=== PATIENT | male | born 1965 | race Caucasian/White ===

== ENCOUNTER → 2017-09-18 | Emergency (ER) | payer MEDICAID ==
[~2017-09-18] VITALS: Ht 180.3 cm; Wt 97.0 kg
[~2017-09-18] MED LIST: aspirin 81mg tab.chew PO ONE; nitroGLYCERIN 0.4mg SUBLingual tab SL PRN
[2017-09-18 09:00] LABS: BASOPHILS % (AUTO) 0.5 % (0-1); EOSINOPHILS # (AUTO) 0.1 X10'3 (0-0.9); EOSINOPHILS % (AUTO) 2.6 % (0-6); HEMATOCRIT 48.6 % (42.0-52.0); LYMPHOCYTES # (AUTO) 1.1 X10'3 (1.1-4.8); MEAN CORPUSCULAR HEMOGLOBIN 31.9 PG (27.0-31.0); MEAN CORPUSCULAR VOLUME 90.9 FL (78-98); MEAN PLATELET VOLUME 7.3 FL (7.4-10.4); MONOCYTES # (AUTO) 0.4 X10'3 (0-0.9); MONOCYTES % (AUTO) 8.2 % (2-12); NEUTROPHILS # (AUTO) 3.6 X10'3 (1.8-7.7); NEUTROPHILS % (AUTO) 67.7 % (42-75); PLATELET COUNT 189 X10'3 (140-440); RED BLOOD COUNT 5.35 X10'6 (4.70-6.10); RED CELL DISTRIBUTION WIDTH 13.3 % (11.5-14.5); WHITE BLOOD COUNT 5.4 X10'3 (4.5-11.0)
[2017-09-18 09:11] LABS: PARTIAL THROMBOPLASTIN TIME 29 SECONDS (22-32); PROTHROMBIN TIME 10.7 SECONDS (9.0-12.0)
[2017-09-18 09:14] LABS: ALANINE AMINOTRANSFERASE 59 U/L (12-78); ALBUMIN 4.4 G/DL (3.4-5.0); ALBUMIN/GLOBULIN RATIO 1.5 (1.1-1.5); ALKALINE PHOSPHATASE 62 IU/L (46-116); ANION GAP 6 (8-16); ASPARTATE AMINO TRANSFERASE 35 U/L (10-37); BILIRUBIN,TOTAL 0.4 MG/DL (0.1-1.0); BLOOD UREA NITROGEN 25 MG/DL (7-18); BUN/CREATININE RATIO 25.8 (5.4-32.0); CALCIUM 9.1 MG/DL (8.5-10.1); CHLORIDE 106 MMOL/L (99-107); CREATININE 0.97 MG/DL (0.60-1.10); GLUCOSE 112 MG/DL (70-104); POTASSIUM 4.7 MMOL/L (3.5-5.1); SODIUM 140 MMOL/L (135-145); TOTAL CARBON DIOXIDE 28.4 MMOL/L (24-32); TOTAL PROTEIN 7.4 G/DL (6.4-8.2); eGFR 81 ML/MIN
[2017-09-18 12:54] VITALS: BP 132/86
== END | disposition home or self-care (01) ==
LOC: ER 08:31
DX: R07.89 Other chest pain (principal); M79.602 Pain in left arm
CPT/HCPCS: 36415; 71045; 80053; 84484; 85025; 85610; 85730; 93005; 99285

== ENCOUNTER 2017-10-05 19:12 | Emergency (ER) | payer MEDICAID ==
[~2017-10-05] VITALS: Ht 180.3 cm; Wt 99.0 kg
[2017-10-05] MEDS ORDERED: aspirin 81mg tab.chew PO ONE (19:35)
[2017-10-05 19:50] LABS: BASOPHILS % (AUTO) 0.4 % (0-1); EOSINOPHILS # (AUTO) 0.3 X10'3 (0-0.9); EOSINOPHILS % (AUTO) 3.4 % (0-6); HEMATOCRIT 48.8 % (42.0-52.0); LYMPHOCYTES # (AUTO) 2.2 X10'3 (1.1-4.8); LYMPHOCYTES % (AUTO) 24.1 % (21-51); MEAN CORPUSCULAR HEMOGLOBIN 31.9 PG (27.0-31.0); MEAN CORPUSCULAR HGB CONC 34.9 % (33.0-36.5); MEAN CORPUSCULAR VOLUME 91.3 FL (78-98); MEAN PLATELET VOLUME 7.5 FL (7.4-10.4); MONOCYTES # (AUTO) 0.7 X10'3 (0-0.9); MONOCYTES % (AUTO) 7.6 % (2-12); NEUTROPHILS # (AUTO) 5.9 X10'3 (1.8-7.7); NEUTROPHILS % (AUTO) 64.5 % (42-75); PLATELET COUNT 185 X10'3 (140-440); RED BLOOD COUNT 5.34 X10'6 (4.70-6.10); RED CELL DISTRIBUTION WIDTH 13.6 % (11.5-14.5); WHITE BLOOD COUNT 9.1 X10'3 (4.5-11.0)
[2017-10-05 20:02] LABS: INR 1.1 INR; PARTIAL THROMBOPLASTIN TIME 28 SECONDS (22-32); PROTHROMBIN TIME 11.1 SECONDS (9.0-12.0)
[2017-10-05 20:05] LABS: ALANINE AMINOTRANSFERASE 71 U/L (12-78); ALBUMIN 4.2 G/DL (3.4-5.0); ALBUMIN/GLOBULIN RATIO 1.2 (1.1-1.5); ALKALINE PHOSPHATASE 58 IU/L (46-116); ANION GAP 11 (8-16); ASPARTATE AMINO TRANSFERASE 44 U/L (10-37); BILIRUBIN,TOTAL 0.8 MG/DL (0.1-1.0); BLOOD UREA NITROGEN 23 MG/DL (7-18); BUN/CREATININE RATIO 19.3 (5.4-32.0); CALCIUM 9.3 MG/DL (8.5-10.1); CHLORIDE 104 MMOL/L (99-107); CREATININE 1.19 MG/DL (0.60-1.10); GLUCOSE 96 MG/DL (70-104); SODIUM 143 MMOL/L (135-145); TOTAL CARBON DIOXIDE 27.6 MMOL/L (24-32); TOTAL PROTEIN 7.6 G/DL (6.4-8.2); eGFR 64 ML/MIN
[2017-10-05] MEDS ORDERED: mag hydrox/Alum hydrox/simeth 30ml oral suspension PO ONE (21:20)
[2017-10-05] MEDS ORDERED: LORazepam 2 mg/ml vial IV ONE (21:20)
[2017-10-05] MEDS ORDERED: famotidine/PF 10 mg/ml inj IV ONE (21:20)
[2017-10-05 23:26] VITALS: BP 129/92
== END 2017-10-05 23:27 | disposition home or self-care (01) ==
LOC: ER 19:13
DX: R07.9 Chest pain, unspecified (principal); F17.200 Nicotine dependence, unspecified, uncomplicated
CPT/HCPCS: 36415; 71045; 80053; 84484; 85025; 85610; 85730; 93005; 96374; 96375; 99285; J2060; J3490

== ENCOUNTER 2017-10-29 19:13 | Emergency (ER) | payer MEDICAID ==
[~2017-10-29] VITALS: Ht 180.3 cm; Wt 97.5 kg
[2017-10-29] MEDS ORDERED: LORazepam 1 MG tablet PO ONE (19:45)
[2017-10-29] MEDS ORDERED: mag hydrox/Alum hydrox/simeth 30ml oral suspension PO ONE (19:45)
[2017-10-29 19:52] LABS: BASOPHILS % (AUTO) 0.3 % (0-1); EOSINOPHILS # (AUTO) 0.5 X10'3 (0-0.9); EOSINOPHILS % (AUTO) 6.4 % (0-6); HEMOGLOBIN 15.9 g/dl (14.0-17.9); LYMPHOCYTES # (AUTO) 1.9 X10'3 (1.1-4.8); MEAN CORPUSCULAR HEMOGLOBIN 32.4 PG (27.0-31.0); MEAN CORPUSCULAR HGB CONC 35.4 % (33.0-36.5); MEAN CORPUSCULAR VOLUME 91.6 FL (78-98); MEAN PLATELET VOLUME 7.9 FL (7.4-10.4); MONOCYTES # (AUTO) 0.6 X10'3 (0-0.9); MONOCYTES % (AUTO) 8.7 % (2-12); NEUTROPHILS # (AUTO) 4.3 X10'3 (1.8-7.7); NEUTROPHILS % (AUTO) 58.6 % (42-75); PLATELET COUNT 185 X10'3 (140-440); RED BLOOD COUNT 4.92 X10'6 (4.70-6.10); RED CELL DISTRIBUTION WIDTH 13.5 % (11.5-14.5); WHITE BLOOD COUNT 7.3 X10'3 (4.5-11.0)
[2017-10-29 20:03] LABS: INR 1.1 INR; PARTIAL THROMBOPLASTIN TIME 29 SECONDS (22-32); PROTHROMBIN TIME 10.9 SECONDS (9.0-12.0)
[2017-10-29 20:13] LABS: ALANINE AMINOTRANSFERASE 62 U/L (12-78); ALBUMIN 3.8 G/DL (3.4-5.0); ALBUMIN/GLOBULIN RATIO 1.1 (1.1-1.5); ALKALINE PHOSPHATASE 70 IU/L (46-116); ANION GAP 10 (8-16); ASPARTATE AMINO TRANSFERASE 39 U/L (10-37); BILIRUBIN,TOTAL 0.4 MG/DL (0.1-1.0); BLOOD UREA NITROGEN 32 MG/DL (7-18); BUN/CREATININE RATIO 27.1 (5.4-32.0); CALCIUM 9.1 MG/DL (8.5-10.1); CHLORIDE 107 MMOL/L (99-107); CREATININE 1.18 MG/DL (0.60-1.10); GLUCOSE 115 MG/DL (70-104); POTASSIUM 4.2 MMOL/L (3.5-5.1); SODIUM 141 MMOL/L (135-145); TOTAL PROTEIN 7.2 G/DL (6.4-8.2); eGFR 65 ML/MIN
[2017-10-29] MEDS ORDERED: normal saline 1000ML IV soln IVB ONE (20:25)
[2017-10-29 21:40] VITALS: BP 128/77
== END 2017-10-29 21:42 | disposition home or self-care (01) ==
LOC: ER 19:14
DX: R07.89 Other chest pain (principal); E86.0 Dehydration; K21.9 Gastro-esophageal reflux disease without esophagitis; F17.210 Nicotine dependence, cigarettes, uncomplicated
CPT/HCPCS: 36415; 71045; 80053; 83880; 84484; 85025; 85610; 85730; 93005; 99285; J7030

== ENCOUNTER 2018-02-01 17:10 | Emergency (ER) | payer MEDICAID ==
[~2018-02-01] VITALS: Ht 180.3 cm; Wt 95.7 kg
[2018-02-01] MEDS ORDERED: aspirin 81mg tab.chew PO ONE (17:15)
[2018-02-01 17:30] LABS: BASOPHILS % (AUTO) 0.1 % (0-1); EOSINOPHILS # (AUTO) 0.1 X10'3 (0-0.9); EOSINOPHILS % (AUTO) 0.6 % (0-6); HEMATOCRIT 54.2 % (42.0-52.0); LYMPHOCYTES # (AUTO) 2.2 X10'3 (1.1-4.8); MEAN CORPUSCULAR HEMOGLOBIN 32.1 PG (27.0-31.0); MEAN CORPUSCULAR HGB CONC 34.9 % (33.0-36.5); MEAN PLATELET VOLUME 7.9 FL (7.4-10.4); MONOCYTES # (AUTO) 0.7 X10'3 (0-0.9); MONOCYTES % (AUTO) 5.6 % (2-12); NEUTROPHILS # (AUTO) 9.8 X10'3 (1.8-7.7); NEUTROPHILS % (AUTO) 76.7 % (42-75); PLATELET COUNT 186 X10'3 (140-440); RED BLOOD COUNT 5.88 X10'6 (4.70-6.10); RED CELL DISTRIBUTION WIDTH 12.8 % (11.5-14.5); WHITE BLOOD COUNT 12.7 X10'3 (4.5-11.0)
[2018-02-01] MEDS ORDERED: normal saline 1000ml 1,000 ML IV ONE ×2 (17:35→18:30)
[2018-02-01] MEDS ORDERED: LORazepam 2 mg/ml vial IV ONE ×2 (17:40→18:30)
[2018-02-01 17:42] LABS: HEMOGLOBIN 18.9 g/dl (14.0-17.9); PARTIAL THROMBOPLASTIN TIME 28 SECONDS (22-32); PROTHROMBIN TIME 10.7 SECONDS (9.0-12.0)
[2018-02-01 17:57] LABS: D-DIMER 0.33 MG/L FEU (0-0.50)
[2018-02-01 18:09] LABS: ALANINE AMINOTRANSFERASE 60 U/L (12-78); ALBUMIN 5.2 G/DL (3.4-5.0); ALBUMIN/GLOBULIN RATIO 1.4 (1.1-1.5); ALKALINE PHOSPHATASE 75 IU/L (46-116); ANION GAP 15 (8-16); ASPARTATE AMINO TRANSFERASE 41 U/L (10-37); BLOOD UREA NITROGEN 35 MG/DL (7-18); BUN/CREATININE RATIO 19.9 (5.4-32.0); CALCIUM 10.7 MG/DL (8.5-10.1); CHLORIDE 95 MMOL/L (99-107); CREATININE 1.76 MG/DL (0.60-1.10); GLUCOSE 104 MG/DL (70-104); POTASSIUM 3.6 MMOL/L (3.5-5.1); SODIUM 134 MMOL/L (135-145); TOTAL CARBON DIOXIDE 24.5 MMOL/L (24-32); eGFR 41 ML/MIN
[2018-02-01 19:20] LABS: URINE AMPHETAMINE SCREEN NEGATIVE (Neg); URINE BARBITUATE SCREEN NEGATIVE (Neg); URINE BENZODIAZEPINES SCREEN NEGATIVE (Neg); URINE CANNABINOID SCREEN NEGATIVE (Neg); URINE COCAINE SCREEN NEGATIVE (Neg); URINE METHADONE SCREEN NEGATIVE (Neg); URINE OPIATE SCREEN NEGATIVE (Neg); URINE PHENCYCLIDINE SCREEN NEGATIVE (Neg)
[2018-02-01 19:25] VITALS: BP 131/87
[2018-02-01] MEDS ORDERED: LORA1TAB PO (19:35)
== END 2018-02-01 19:46 | disposition home or self-care (01) ==
LOC: ER 17:11
DX: F41.9 Anxiety disorder, unspecified (principal); E86.0 Dehydration; D75.1 Secondary polycythemia; K21.9 Gastro-esophageal reflux disease without esophagitis; Z98.890 Other specified postprocedural states; Z79.899 Other long term (current) drug therapy
CPT/HCPCS: 36415; 71045; 80053; 80305; 84484; 85025; 85379; 85610; 85730; 93005; 96361; 96374; 96376; 99285; J2060; J7030

== ENCOUNTER 2018-04-30 15:47 | Emergency (ER) | payer MEDICAID ==
[~2018-04-30] VITALS: Ht 177.8 cm; Wt 95.5 kg
[2018-04-30 17:53] LABS: CLARITY,URINE CLEAR (Clear); COLOR,URINE YELLOW (Yellow); GLUCOSE, URINE NEGATIVE (Neg); KETONES,URINE NEGATIVE (Neg); LEUKOCYTE ESTERASE ,URINE NEGATIVE (Neg); NITRITES, URINE NEGATIVE (Neg); OCCULT BLOOD,URINE NEGATIVE (Neg); PROTEIN,URINE TRACE mg/dl (Neg); UA COLLECTION TYPE CLN CATCH MIDSTREAM
[2018-04-30 17:58] LABS: BACTERIA,URINE NONE SEEN /HPF (Neg); MUCUS STRANDS FEW /LPF (Neg); RBC,URINE NONE SEEN /HPF (0-2); SQUAMOUS EPITHELIAL CELL,UR NONE SEEN /LPF (FEW); WBC,URINE 0-4 /HPF (0-4)
[2018-04-30 18:00] LABS: URINE AMPHETAMINE SCREEN NEGATIVE (Neg); URINE BARBITUATE SCREEN NEGATIVE (Neg); URINE BENZODIAZEPINES SCREEN NEGATIVE (Neg); URINE CANNABINOID SCREEN NEGATIVE (Neg); URINE COCAINE SCREEN NEGATIVE (Neg); URINE METHADONE SCREEN NEGATIVE (Neg); URINE OPIATE SCREEN NEGATIVE (Neg); URINE PHENCYCLIDINE SCREEN NEGATIVE (Neg)
[2018-04-30 18:07] LABS: BASOPHILS % (AUTO) 0.5 % (0-1); EOSINOPHILS # (AUTO) 0.2 X10'3 (0-0.9); HEMATOCRIT 46.3 % (42.0-52.0); HEMOGLOBIN 15.9 g/dl (14.0-17.9); LYMPHOCYTES % (AUTO) 12.5 % (21-51); MEAN CORPUSCULAR HEMOGLOBIN 30.7 PG (27.0-31.0); MEAN CORPUSCULAR HGB CONC 34.3 % (33.0-36.5); MEAN CORPUSCULAR VOLUME 89.5 FL (78-98); MEAN PLATELET VOLUME 7.5 FL (7.4-10.4); MONOCYTES # (AUTO) 0.7 X10'3 (0-0.9); MONOCYTES % (AUTO) 9.4 % (2-12); NEUTROPHILS # (AUTO) 5.8 X10'3 (1.8-7.7); NEUTROPHILS % (AUTO) 75.6 % (42-75); PLATELET COUNT 217 X10'3 (140-440); RED BLOOD COUNT 5.17 X10'6 (4.70-6.10); RED CELL DISTRIBUTION WIDTH 12.7 % (11.5-14.5); WHITE BLOOD COUNT 7.6 X10'3 (4.5-11.0)
[2018-04-30 18:23] LABS: ALANINE AMINOTRANSFERASE 47 U/L (12-78); ALBUMIN 3.3 G/DL (3.4-5.0); ALBUMIN/GLOBULIN RATIO 0.8 (1.1-1.5); ALKALINE PHOSPHATASE 61 IU/L (46-116); ANION GAP 12 (8-16); ASPARTATE AMINO TRANSFERASE 43 U/L (10-37); BILIRUBIN,TOTAL 0.5 MG/DL (0.1-1.0); BLOOD UREA NITROGEN 16 MG/DL (7-18); CALCIUM 9.2 MG/DL (8.5-10.1); CHLORIDE 100 MMOL/L (99-107); CREATININE 1.14 MG/DL (0.60-1.10); GLUCOSE 108 MG/DL (70-104); POTASSIUM 3.8 MMOL/L (3.5-5.1); SODIUM 137 MMOL/L (135-145); TOTAL CARBON DIOXIDE 25.2 MMOL/L (24-32); TOTAL PROTEIN 7.6 G/DL (6.4-8.2); eGFR 67 ML/MIN
[2018-04-30 18:34] LABS: D-DIMER 1.41 MG/L FEU (0-0.50)
[2018-04-30] MEDS ORDERED: iohexol 350MG/ML 100ml bottle IV ONE (19:00)
[2018-04-30] MEDS ORDERED: DEXA4TAB67 PO (20:53)
[2018-04-30] MEDS ORDERED: ALBU18HF2 INH (20:53)
[2018-04-30] MEDS ORDERED: LEVO750T21 PO (20:53)
[2018-04-30] MEDS ORDERED: levoFLOXACIN 750MG TABLET PO STA (21:02)
[2018-04-30 21:12] VITALS: BP 133/94
== END 2018-04-30 21:13 | disposition home or self-care (01) ==
LOC: ER 15:48
DX: J18.9 Pneumonia, unspecified organism (principal); K21.9 Gastro-esophageal reflux disease without esophagitis; Z86.19 Personal history of other infectious and parasitic diseases; Z98.890 Other specified postprocedural states; Z79.899 Other long term (current) drug therapy; R16.0 Hepatomegaly, not elsewhere classified
CPT/HCPCS: 36415; 71275; 80053; 80305; 81001; 85025; 85379; 85651; 99285; J7030; Q9967

== ENCOUNTER 2018-10-26 19:43 | Emergency (ER) | payer MEDICAID ==
[~2018-10-26] VITALS: Ht 180.3 cm; Wt 94.8 kg
[~2018-10-26 19:43] MED LIST changes: +ALBU18HF2 INH; +DEXA4TAB67 PO; -aspirin 81mg tab.chew PO ONE; -nitroGLYCERIN 0.4mg SUBLingual tab SL PRN
[2018-10-26 20:19] VITALS: BP 111/87
== END 2018-10-26 21:24 | disposition home or self-care (01) ==
LOC: ER 19:43
DX: J06.9 Acute upper respiratory infection, unspecified (principal); K21.9 Gastro-esophageal reflux disease without esophagitis; F17.200 Nicotine dependence, unspecified, uncomplicated
CPT/HCPCS: 71046; 93005; 99283

== ENCOUNTER 2019-08-13 13:14 | Emergency (ER) | payer MEDICAID, OTHER ==
[~2019-08-13] VITALS: Ht 180.3 cm; Wt 95.5 kg
[2019-08-13 13:48] VITALS: BP 145/89
[2019-08-13] MEDS ORDERED: LORazepam 1 MG tablet PO ONE (15:00)
[2019-08-13] MEDS ORDERED: LORA-269 PO (15:51)
== END 2019-08-13 15:55 | disposition home or self-care (01) ==
LOC: ER 13:15
DX: R05 Cough (principal); F41.9 Anxiety disorder, unspecified; K21.9 Gastro-esophageal reflux disease without esophagitis; F17.200 Nicotine dependence, unspecified, uncomplicated; Z98.890 Other specified postprocedural states; Z86.19 Personal history of other infectious and parasitic diseases
CPT/HCPCS: 71045; 99283

== ENCOUNTER 2020-03-24 19:32 | Emergency (ER) | payer MEDICAID ==
[~2020-03-24] VITALS: Ht 180.3 cm; Wt 84.1 kg
[~2020-03-24 19:32] MED LIST changes: +LORA-269 PO
--- NOTE | 2020-03-24 20:11 | NUR ---
PT REPORTS USING A "[employer] YESTERDAY"
[2020-03-24 20:24] LABS: BASOPHILS % (AUTO) 0.7 % (0-1); EOSINOPHILS # (AUTO) 0.3 X10'3 (0-0.9); EOSINOPHILS % (AUTO) 4.3 % (0-6); HEMATOCRIT 44.6 % (42.0-52.0); HEMOGLOBIN 15.6 g/dl (14.0-17.9); LYMPHOCYTES # (AUTO) 1.7 X10'3 (1.1-4.8); LYMPHOCYTES % (AUTO) 23.4 % (21-51); MEAN CORPUSCULAR HEMOGLOBIN 31.2 PG (27.0-31.0); MEAN CORPUSCULAR HGB CONC 35.1 g/dL (33.0-36.5); MEAN PLATELET VOLUME 7.2 FL (7.4-10.4); MONOCYTES # (AUTO) 0.7 X10'3 (0-0.9); MONOCYTES % (AUTO) 9.7 % (2-12); NEUTROPHILS # (AUTO) 4.6 X10'3 (1.8-7.7); NEUTROPHILS % (AUTO) 61.9 % (42-75); PLATELET COUNT 206 X10'3 (140-440); RED BLOOD COUNT 5.01 X10'6 (4.70-6.10); RED CELL DISTRIBUTION WIDTH 13.2 % (11.5-14.5); WHITE BLOOD COUNT 7.4 X10'3 (4.5-11.0)
[2020-03-24 20:30] LABS: ANION GAP 9 (8-16); BILIRUBIN,TOTAL 0.3 MG/DL (0.1-1.0); BLOOD UREA NITROGEN 20 MG/DL (7-18); BUN/CREATININE RATIO 15.3 (5.4-32.0); CALCIUM 8.8 MG/DL (8.5-10.1); CHLORIDE 105 MMOL/L (99-107); CREATININE 1.31 MG/DL (0.60-1.10); GLUCOSE 93 MG/DL (70-104); POTASSIUM 4.1 MMOL/L (3.5-5.1); SODIUM 140 MMOL/L (135-145); TOTAL CARBON DIOXIDE 26.3 MMOL/L (24-32); eGFR 57 ML/MIN
[2020-03-24 20:31] LABS: ALANINE AMINOTRANSFERASE 22 U/L (12-78); ALBUMIN/GLOBULIN RATIO 1.2 (1.1-1.5); ALKALINE PHOSPHATASE 91 IU/L (46-116); ASPARTATE AMINO TRANSFERASE 19 U/L (10-37); TOTAL PROTEIN 7.4 G/DL (6.4-8.2)
[2020-03-24 21:24] VITALS: BP 141/98
== END 2020-03-24 21:32 | disposition home or self-care (01) ==
LOC: ER 19:33
DX: R07.89 Other chest pain (principal); F15.10 Other stimulant abuse, uncomplicated; K21.9 Gastro-esophageal reflux disease without esophagitis; F41.9 Anxiety disorder, unspecified; Z86.19 Personal history of other infectious and parasitic diseases; Z98.890 Other specified postprocedural states; Z79.899 Other long term (current) drug therapy
CPT/HCPCS: 36415; 71045; 80053; 83880; 84484; 85025; 93005; 99285

== ENCOUNTER 2021-03-28 21:00 | Emergency (ER) | payer MEDICAID ==
[~2021-03-28] VITALS: Ht 180.3 cm; Wt 95.5 kg
[2021-03-28 22:03] LABS: TROPONIN I 0.48 NG/ML (0.0-0.05)
[2021-03-28] MEDS ORDERED: normal saline 1000ml 1,000 ML IV ONE (22:45)
[2021-03-28] MEDS ORDERED: aspirin 81mg tab.chew PO ONE (22:45)
[2021-03-28] MEDS ORDERED: normal saline 1000ML IV soln IVB ONE (22:45)
[2021-03-28] MEDS ORDERED: nitroGLYCERIN 0.4mg/hour patch TD ONE (22:45)
[2021-03-28 23:00] LABS: HEMATOCRIT 48.8 % (42.0-52.0); PLATELET COUNT 228 X10'3 (140-440); RED CELL DISTRIBUTION WIDTH 13.9 % (11.5-14.5); WHITE BLOOD COUNT 8.9 X10'3 (4.5-11.0)
[2021-03-28 23:02] LABS: BASOPHILS # (AUTO) 0.1 X10'3 (0-0.2); BASOPHILS % (AUTO) 0.7 % (0-1); EOSINOPHILS # (AUTO) 0.1 X10'3 (0-0.9); EOSINOPHILS % (AUTO) 1.4 % (0-6); HEMOGLOBIN 16.8 g/dl (14.0-17.9); LYMPHOCYTES # (AUTO) 1.9 X10'3 (1.1-4.8); MEAN CORPUSCULAR HEMOGLOBIN 30.9 PG (27.0-31.0); MEAN CORPUSCULAR HGB CONC 34.3 g/dL (33.0-36.5); MEAN PLATELET VOLUME 8.7 FL (7.4-10.4); MONOCYTES # (AUTO) 0.8 X10'3 (0-0.9); NEUTROPHILS % (AUTO) 67.9 % (42-75); RED BLOOD COUNT 5.43 X10'6 (4.70-6.10)
[2021-03-28 23:09] LABS: ALANINE AMINOTRANSFERASE 24 U/L (12-78); ALBUMIN 3.8 G/DL (3.4-5.0); ALBUMIN/GLOBULIN RATIO 1.2 (1.1-1.5); ALKALINE PHOSPHATASE 96 IU/L (46-116); ANION GAP 12 (8-16); ASPARTATE AMINO TRANSFERASE 19 U/L (10-37); BILIRUBIN,TOTAL 0.4 MG/DL (0.1-1.0); BLOOD UREA NITROGEN 20 MG/DL (7-18); BUN/CREATININE RATIO 14.4 (5.4-32.0); CALCIUM 8.6 MG/DL (8.5-10.1); CHLORIDE 108 MMOL/L (99-107); CREATININE 1.39 MG/DL (0.60-1.10); GLUCOSE 114 MG/DL (70-104); POTASSIUM 4.1 MMOL/L (3.5-5.1); SODIUM 140 MMOL/L (135-145); TOTAL CARBON DIOXIDE 19.9 MMOL/L (24-32); eGFR 53 ML/MIN
[2021-03-28 23:13] LABS: CREATINE KINASE 61 U/L (39-308); MAGNESIUM 1.8 MG/DL (1.5-2.4)
[2021-03-29] VITALS (7 sets, daily range): BP systolic 139–148; BP diastolic 93–103
[2021-03-29] MEDS ORDERED: acetaminophen 325mg tablet PO PRN ×2 (00:25)
[2021-03-29] MEDS ORDERED: enoxaparin 100mg/ml syringe SUBCUT ONE (00:25)
[2021-03-29] MEDS ORDERED: normal saline 1000ml 1,000 ML IV SCH (00:25)
[2021-03-29] MEDS ORDERED: metoprolol tartrate 1mg/ml inj IV PRN (00:25)
[2021-03-29] MEDS ORDERED: regadenoson 0.4mg/5ml syringe IV PRN (00:25)
[2021-03-29] MEDS ORDERED: magnesium Cl slow-release 64mg tablet PO PRN (00:25)
[2021-03-29] MEDS ORDERED: morphine 2 MG/ML inj. syringe IV PRN (00:25)
[2021-03-29] MEDS ORDERED: potassium Cl 40MEQ/1/2NS 520ml 520 ML IV PRN ×2 (00:25)
[2021-03-29] MEDS ORDERED: potassium Cl 20 mEq SR tablet PO PRN ×2 (00:25)
[2021-03-29] MEDS ORDERED: ondansetron/PF 4mg/2ml inj IV PRN (00:25)
[2021-03-29] MEDS ORDERED: magnesium 2GM in 50ml NS 50 ML IV PRN (00:25)
[2021-03-29] MEDS ORDERED: HYDROcodone/acetaminophen 5mg/325mg tablet PO PRN (00:25)
[2021-03-29] MEDS ORDERED: HYDROcodone/acetaminophen 10/325mg tab PO PRN (00:25)
[2021-03-29] MEDS ORDERED: aminophylline 250mg/10ml inj. IV PRN (00:25)
[2021-03-29] MEDS ORDERED: magnesium 4gm in 100ml NS 100 ML IV PRN (00:25)
[2021-03-29] MEDS ORDERED: nitroGLYCERIN 0.4mg SUBLingual tab SL PRN (00:25)
[2021-03-29 00:26] LABS: PARTIAL THROMBOPLASTIN TIME 29 SECONDS (22-32)
[2021-03-29] MEDS ORDERED: NO HOME MEDS (01:04)
[2021-03-29] MEDS ORDERED: albuterol 2.5 MG/3 ML nebule NEB PRN (01:10)
[2021-03-29] MEDS: morphine 2 MG/ML inj. syringe IV PRN ×2 (01:19→09:26)
[2021-03-29 01:27] LABS: CLARITY,URINE CLEAR (Clear); COLOR,URINE YELLOW (Yellow); GLUCOSE, URINE NEGATIVE (Neg); KETONES,URINE NEGATIVE (Neg); LEUKOCYTE ESTERASE ,URINE NEGATIVE (Neg); NITRITES, URINE NEGATIVE (Neg); OCCULT BLOOD,URINE NEGATIVE (Neg); PH,URINE 5.5 (4.8-8.0); PROTEIN,URINE 30 mg/dl (Neg)
[2021-03-29 01:34] LABS: UA COLLECTION TYPE URINAL
[2021-03-29 01:35] LABS: URINE AMPHETAMINE SCREEN POSITIVE (Neg); URINE BARBITUATE SCREEN NEGATIVE (Neg); URINE BENZODIAZEPINES SCREEN NEGATIVE (Neg); URINE CANNABINOID SCREEN NEGATIVE (Neg); URINE COCAINE SCREEN NEGATIVE (Neg); URINE METHADONE SCREEN NEGATIVE (Neg); URINE OPIATE SCREEN NEGATIVE (Neg); URINE PHENCYCLIDINE SCREEN NEGATIVE (Neg)
[2021-03-29 01:37] LABS: BACTERIA,URINE NONE SEEN /HPF (Neg); RBC,URINE NONE SEEN /HPF (0-2); SQUAMOUS EPITHELIAL CELL,UR NONE SEEN /LPF (FEW); WBC,URINE 0-4 /HPF (0-4)
[2021-03-29] MEDS ORDERED: PERFLUTREN PROTEIN-A MICROSPHR (Optison) 0.22 MG/ML 3ML VIAL IV ONE (08:00)
[2021-03-29] MEDS ORDERED: K and/or MAG REPLACEMENT MC SCH (08:00)
[2021-03-29] MEDS ORDERED: heparin, porcine 5000 units/ml vial SQ SCH (08:00)
--- NOTE | 2021-03-29 08:48 | NUR ---
Pt to [facility]
--- NOTE | 2021-03-29 10:30 | NUR ---
to nuc med
--- NOTE | 2021-03-29 16:15 | NUR ---
PT REQUESTS TO LEAVE AMA, DR MALDONADO NOTIFIED. Pt encouraged to stay but declined. Advised to return for worsening symptoms.
[2021-03-29] MEDS ORDERED: temazepam 15mg capsule PO PRN (21:00)
== END 2021-03-29 16:07 | disposition left against medical advice (07) ==
LOC: ER 21:01 → ED HOLD 03-29 00:26 → UNDOADMIN 03-29 00:26 → ER 03-29 16:07 → UNDODISIN 03-29 16:10
DX: I21.4 Non-ST elevation (NSTEMI) myocardial infarction (principal); I50.23 Acute on chronic systolic (congestive) heart failure; I42.7 Cardiomyopathy due to drug and external agent; Z20.822 Contact with and (suspected) exposure to COVID-19; F17.210 Nicotine dependence, cigarettes, uncomplicated; Z53.29 Procedure and treatment not carried out because of patient's decision for other reasons; F19.10 Other psychoactive substance abuse, uncomplicated; T43.625A Adverse effect of amphetamines, initial encounter; R03.0 Elevated blood-pressure reading, without diagnosis of hypertension; J44.9 Chronic obstructive pulmonary disease, unspecified; N18.30 Chronic kidney disease, stage 3 unspecified; B19.20 Unspecified viral hepatitis C without hepatic coma; F41.9 Anxiety disorder, unspecified; K21.9 Gastro-esophageal reflux disease without esophagitis; R79.89 Other specified abnormal findings of blood chemistry; Y92.89 Other specified places as the place of occurrence of the external cause; Z79.899 Other long term (current) drug therapy
CPT/HCPCS: 36415; 71045; 78452; 80053; 80305; 81001; 82550; 83735; 83880; 84484; 85025; 85610; 85730; 87081; 87635; 93005; 93017; 93306; 96361; 96372; 96374; 96375; 96376; 99285; A9500; C9803; J2270; J2405; J2785; J7030; 94760; G0378; J1650

== ENCOUNTER 2021-03-31 19:25 | Emergency (ER) | payer MEDICAID ==
[~2021-03-31] VITALS: Ht 175.3 cm; Wt 86.0 kg
[~2021-03-31 19:25] MED LIST changes: -ALBU18HF2 INH; -DEXA4TAB67 PO; -LORA-269 PO; +NO HOME MEDS
[2021-03-31] MEDS ORDERED: aspirin 81mg tab.chew PO ONE (19:55)
[2021-03-31 20:27] LABS: BASOPHILS # (AUTO) 0.1 X10'3 (0-0.2); BASOPHILS % (AUTO) 0.6 % (0-1); EOSINOPHILS # (AUTO) 0.1 X10'3 (0-0.9); EOSINOPHILS % (AUTO) 1.4 % (0-6); HEMATOCRIT 46.2 % (42.0-52.0); HEMOGLOBIN 16.1 g/dl (14.0-17.9); LYMPHOCYTES # (AUTO) 1.8 X10'3 (1.1-4.8); LYMPHOCYTES % (AUTO) 19.4 % (21-51); MEAN CORPUSCULAR HEMOGLOBIN 30.9 PG (27.0-31.0); MEAN CORPUSCULAR HGB CONC 34.9 g/dL (33.0-36.5); MEAN CORPUSCULAR VOLUME 88.6 FL (78-98); MEAN PLATELET VOLUME 8.3 FL (7.4-10.4); MONOCYTES # (AUTO) 0.8 X10'3 (0-0.9); MONOCYTES % (AUTO) 8.6 % (2-12); NEUTROPHILS # (AUTO) 6.5 X10'3 (1.8-7.7); PLATELET COUNT 218 X10'3 (140-440); RED BLOOD COUNT 5.22 X10'6 (4.70-6.10); RED CELL DISTRIBUTION WIDTH 13.9 % (11.5-14.5); WHITE BLOOD COUNT 9.4 X10'3 (4.5-11.0)
[2021-03-31 20:30] LABS: ALANINE AMINOTRANSFERASE 36 U/L (12-78); ALBUMIN 3.8 G/DL (3.4-5.0); ALBUMIN/GLOBULIN RATIO 1.2 (1.1-1.5); ALKALINE PHOSPHATASE 101 IU/L (46-116); ANION GAP 7 (8-16); ASPARTATE AMINO TRANSFERASE 33 U/L (10-37); BILIRUBIN,TOTAL 0.5 MG/DL (0.1-1.0); BLOOD UREA NITROGEN 21 MG/DL (7-18); BUN/CREATININE RATIO 13.5 (5.4-32.0); CALCIUM 8.9 MG/DL (8.5-10.1); CHLORIDE 108 MMOL/L (99-107); CREATININE 1.55 MG/DL (0.60-1.10); GLUCOSE 125 MG/DL (70-104); POTASSIUM 4.2 MMOL/L (3.5-5.1); SODIUM 140 MMOL/L (135-145); TOTAL CARBON DIOXIDE 25.3 MMOL/L (24-32); eGFR 46 ML/MIN
[2021-03-31 20:37] LABS: MAGNESIUM 1.7 MG/DL (1.5-2.4)
[2021-03-31] MEDS ORDERED: furosemide 10 MG/1 ML 10ml inj IV ONE (21:15)
[2021-03-31] MEDS ORDERED: carVEDilol 3.125mg tablet PO STA (21:19)
[2021-03-31] MEDS ORDERED: CARV3.122 PO (21:21)
[2021-03-31] MEDS ORDERED: NICO-687 TOP (21:39)
[2021-03-31] MEDS ORDERED: ALBU18HF2 INH (21:49)
[2021-03-31 21:52] VITALS: BP 148/118
== END 2021-03-31 21:53 | disposition home or self-care (01) ==
LOC: ER 19:25
DX: I42.7 Cardiomyopathy due to drug and external agent (principal); R07.89 Other chest pain; F15.90 Other stimulant use, unspecified, uncomplicated; N28.9 Disorder of kidney and ureter, unspecified; I42.9 Cardiomyopathy, unspecified; K21.9 Gastro-esophageal reflux disease without esophagitis; Z86.19 Personal history of other infectious and parasitic diseases; Z72.89 Other problems related to lifestyle; Z79.899 Other long term (current) drug therapy
CPT/HCPCS: 36415; 71045; 80053; 83735; 83880; 84484; 85025; 93005; 96374; 99285; J1940

== ENCOUNTER 2021-04-13 19:42 | Observation (INO) | payer MEDICAID ==
[~2021-04-13] VITALS: Ht 180.3 cm; Wt 95.5 kg
[~2021-04-13 19:42] MED LIST changes: +ALBU18HF2 INH; +CARV3.122 PO; +NICO-687 TOP
[2021-04-13 21:00] LABS: BASOPHILS # (AUTO) 0.1 X10'3 (0-0.2); BASOPHILS % (AUTO) 0.6 % (0-1); EOSINOPHILS # (AUTO) 0.2 X10'3 (0-0.9); HEMATOCRIT 45.3 % (42.0-52.0); HEMOGLOBIN 15.4 g/dl (14.0-17.9); LYMPHOCYTES # (AUTO) 1.9 X10'3 (1.1-4.8); LYMPHOCYTES % (AUTO) 22.6 % (21-51); MEAN CORPUSCULAR HEMOGLOBIN 30.6 PG (27.0-31.0); MEAN PLATELET VOLUME 8.2 FL (7.4-10.4); MONOCYTES # (AUTO) 0.6 X10'3 (0-0.9); MONOCYTES % (AUTO) 7.5 % (2-12); NEUTROPHILS # (AUTO) 5.8 X10'3 (1.8-7.7); NEUTROPHILS % (AUTO) 67.3 % (42-75); PLATELET COUNT 177 X10'3 (140-440); RED BLOOD COUNT 5.04 X10'6 (4.70-6.10); RED CELL DISTRIBUTION WIDTH 14.5 % (11.5-14.5); WHITE BLOOD COUNT 8.6 X10'3 (4.5-11.0)
[2021-04-13 21:30] LABS: ALANINE AMINOTRANSFERASE 50 U/L (12-78); ALBUMIN 3.6 G/DL (3.4-5.0); ALBUMIN/GLOBULIN RATIO 1.2 (1.1-1.5); ALKALINE PHOSPHATASE 105 IU/L (46-116); ANION GAP 11 (8-16); ASPARTATE AMINO TRANSFERASE 48 U/L (10-37); BILIRUBIN,TOTAL 0.4 MG/DL (0.1-1.0); BLOOD UREA NITROGEN 25 MG/DL (7-18); BUN/CREATININE RATIO 16.4 (5.4-32.0); CALCIUM 8.5 MG/DL (8.5-10.1); CHLORIDE 110 MMOL/L (99-107); CREATININE 1.52 MG/DL (0.60-1.10); GLUCOSE 101 MG/DL (70-104); POTASSIUM 4.3 MMOL/L (3.5-5.1); SODIUM 145 MMOL/L (135-145); TOTAL CARBON DIOXIDE 24.2 MMOL/L (24-32); TOTAL PROTEIN 6.5 G/DL (6.4-8.2); eGFR 48 ML/MIN
--- NOTE | 2021-04-13 22:29 | NUR ---
PT STATES IT FEELS LIKE HE CANNOT DEEP A DEEP BREATH AND APPEARS APPREHENSIVE. DR GILLISFS INFORMED AND A D DIMER ADDED PT INFORMED
--- NOTE | 2021-04-13 22:31 | NUR ---
LAB NOTIFIED OF ADD ON
[2021-04-13 22:43] LABS: D-DIMER 1.12 MG/L FEU (0-0.50)
--- NOTE | 2021-04-13 22:54 | NUR ---
DR OROSCO MADE AWARE OF DDIMER AND PT PLACED INTO ROOM 19 FOR
[2021-04-13] MEDS ORDERED: iohexol 350MG/ML 100ml bottle IV ONE (23:11)
[2021-04-14] MEDS ORDERED: aspirin 81mg tab.chew PO ONE (00:30)
[2021-04-14] MEDS ORDERED: potassium Cl 40MEQ/1/2NS 520ml 520 ML IV PRN ×2 (01:10)
[2021-04-14] MEDS ORDERED: magnesium Cl slow-release 64mg tablet PO PRN (01:10)
[2021-04-14] MEDS ORDERED: ondansetron/PF 4mg/2ml inj IV PRN (01:10)
[2021-04-14] MEDS ORDERED: magnesium 4gm in 100ml NS 100 ML IV PRN (01:10)
[2021-04-14] MEDS ORDERED: acetaminophen 325mg tablet PO PRN (01:10)
[2021-04-14] MEDS ORDERED: magnesium 2GM in 50ml NS 50 ML IV PRN (01:10)
[2021-04-14] MEDS ORDERED: potassium Cl 20 mEq SR tablet PO PRN ×2 (01:10)
[2021-04-14] MEDS ORDERED: LORazepam 1 MG tablet PO ONE (01:40)
--- NOTE | 2021-04-14 01:59 | NUR ---
pt ambulated to restroom and back in room 18 on a steady gait.
[2021-04-14] MEDS ORDERED: ASPI-1265 PO (02:02)
[2021-04-14 04:40] LABS: URINE AMPHETAMINE SCREEN NEGATIVE (Neg); URINE BARBITUATE SCREEN NEGATIVE (Neg); URINE BENZODIAZEPINES SCREEN NEGATIVE (Neg); URINE CANNABINOID SCREEN NEGATIVE (Neg); URINE COCAINE SCREEN NEGATIVE (Neg); URINE METHADONE SCREEN NEGATIVE (Neg); URINE OPIATE SCREEN NEGATIVE (Neg); URINE PHENCYCLIDINE SCREEN NEGATIVE (Neg)
[2021-04-14] MEDS ORDERED: carVEDilol 3.125mg tablet PO SCH (08:00)
[2021-04-14] MEDS ORDERED: furosemide 10 MG/1 ML 10ml inj IV SCH (08:00)
[2021-04-14] MEDS ORDERED: K and/or MAG REPLACEMENT MC SCH (08:00)
[2021-04-14] MEDS ORDERED: heparin, porcine 5000 units/ml vial SQ SCH (08:00)
--- NOTE | 2021-04-14 12:53 | NUR ---
[phone] Asmita () please call back when able
[2021-04-14 14:25] VITALS: BP 143/108
--- NOTE | 2021-04-14 15:06 | NUR ---
patient updated in regards to recent labs and urged to wait for admission. hospitalist arley paged because patient is wanting to be discharged and would like to receive rx for lasix until he finds a pcp
== END 2021-04-14 16:00 | disposition left against medical advice (07) ==
LOC: ER 19:43 → ED HOLD 04-14 01:13
PROVIDERS: ADMIT Internal Medicine; ATTEND Internal Medicine
DX: I50.23 Acute on chronic systolic (congestive) heart failure (principal); I21.4 Non-ST elevation (NSTEMI) myocardial infarction; R07.89 Other chest pain; F15.90 Other stimulant use, unspecified, uncomplicated; J44.9 Chronic obstructive pulmonary disease, unspecified; I25.2 Old myocardial infarction; K21.9 Gastro-esophageal reflux disease without esophagitis; F41.9 Anxiety disorder, unspecified; Z86.19 Personal history of other infectious and parasitic diseases; Z98.890 Other specified postprocedural states; Z79.899 Other long term (current) drug therapy; Z87.891 Personal history of nicotine dependence
CPT/HCPCS: 36415; 71045; 71275; 80053; 80305; 83880; 84484; 85025; 85379; 93005; 96372; 96374; 99285; G0378; J1644; J1940; Q9967

== ENCOUNTER 2021-05-02 13:15 | Inpatient (IN) | payer MEDICAID ==
[~2021-05-02] VITALS: Ht 180.3 cm; Wt 95.5 kg
[~2021-05-02 13:15] MED LIST changes: +ASPI-1265 PO; -NICO-687 TOP; -NO HOME MEDS
[2021-05-02 14:22] LABS: BASOPHILS # (AUTO) 0.1 X10'3 (0-0.2); BASOPHILS % (AUTO) 0.6 % (0-1); EOSINOPHILS # (AUTO) 0.1 X10'3 (0-0.9); EOSINOPHILS % (AUTO) 0.9 % (0-6); HEMATOCRIT 50.9 % (42.0-52.0); HEMOGLOBIN 16.8 g/dl (14.0-17.9); LYMPHOCYTES # (AUTO) 2.3 X10'3 (1.1-4.8); LYMPHOCYTES % (AUTO) 15.9 % (21-51); MEAN CORPUSCULAR HEMOGLOBIN 30.1 PG (27.0-31.0); MEAN CORPUSCULAR VOLUME 91.2 FL (78-98); MEAN PLATELET VOLUME 7.7 FL (7.4-10.4); MONOCYTES % (AUTO) 7.3 % (2-12); NEUTROPHILS # (AUTO) 10.8 X10'3 (1.8-7.7); NEUTROPHILS % (AUTO) 75.3 % (42-75); PLATELET COUNT 210 X10'3 (140-440); RED BLOOD COUNT 5.59 X10'6 (4.70-6.10); RED CELL DISTRIBUTION WIDTH 14.7 % (11.5-14.5); WHITE BLOOD COUNT 14.3 X10'3 (4.5-11.0)
[2021-05-02] MEDS ORDERED: aspirin 325mg tablet PO ONE (14:35)
[2021-05-02] MEDS ORDERED: metoprolol tartrate 1mg/ml inj IV ONE (14:35)
[2021-05-02 14:36] LABS: ALANINE AMINOTRANSFERASE 32 U/L (12-78); ALBUMIN 3.7 G/DL (3.4-5.0); ALBUMIN/GLOBULIN RATIO 1.1 (1.1-1.5); ALKALINE PHOSPHATASE 103 IU/L (46-116); ANION GAP 11 (8-16); ASPARTATE AMINO TRANSFERASE 26 U/L (10-37); BILIRUBIN,TOTAL 1.1 MG/DL (0.1-1.0); BLOOD UREA NITROGEN 39 MG/DL (7-18); BUN/CREATININE RATIO 23.2 (5.4-32.0); CALCIUM 9.2 MG/DL (8.5-10.1); CHLORIDE 104 MMOL/L (99-107); CREATININE 1.68 MG/DL (0.60-1.10); GLUCOSE 124 MG/DL (70-104); POTASSIUM 3.9 MMOL/L (3.5-5.1); SODIUM 139 MMOL/L (135-145); TOTAL CARBON DIOXIDE 23.7 MMOL/L (24-32); eGFR 42 ML/MIN
[2021-05-02] MEDS ORDERED: amiodarone 150mg/dext, iso-os 100 ML IV ONE (15:00)
[2021-05-02] MEDS ORDERED: NICO-687 TOP (15:39)
[2021-05-02] MEDS ORDERED: CARV3.122 PO (15:39)
[2021-05-02] MEDS ORDERED: ASPI-611 PO (15:39)
[2021-05-02] MEDS ORDERED: magnesium 2GM in 50ml NS 50 ML IV PRN (15:50)
[2021-05-02] MEDS ORDERED: HYDROcodone/acetaminophen 10/325mg tab PO PRN (15:50)
[2021-05-02] MEDS ORDERED: potassium Cl 20 mEq SR tablet PO PRN ×2 (15:50)
[2021-05-02] MEDS ORDERED: mag hydrox/Alum hydrox/simeth 30ml oral suspension PO PRN (15:50)
[2021-05-02] MEDS ORDERED: ondansetron/PF 4mg/2ml inj IV PRN (15:50)
[2021-05-02] MEDS ORDERED: potassium Cl 40MEQ/1/2NS 520ml 520 ML IV PRN ×2 (15:50)
[2021-05-02] MEDS ORDERED: albuterol 2.5 MG/3 ML nebule NEB PRN (15:50)
[2021-05-02] MEDS ORDERED: acetaminophen 325mg tablet PO PRN ×2 (15:50)
[2021-05-02] MEDS ORDERED: magnesium 4gm in 100ml NS 100 ML IV PRN (15:50)
[2021-05-02] MEDS ORDERED: HYDROcodone/acetaminophen 5mg/325mg tablet PO PRN (15:50)
[2021-05-02] MEDS ORDERED: ipratropium/albuterol 3ml nebule NEB PRN (15:50)
[2021-05-02] MEDS ORDERED: magnesium hydroxide 30ml (MOM) UD suspension PO PRN (15:50)
[2021-05-02] MEDS: amiodarone/D5 360MG/200ML BAG 200 ML IV SCH ×2 (15:54→22:52)
[2021-05-02 16:28] LABS: URINE AMPHETAMINE SCREEN NEGATIVE (Neg); URINE BARBITUATE SCREEN NEGATIVE (Neg); URINE BENZODIAZEPINES SCREEN NEGATIVE (Neg); URINE CANNABINOID SCREEN NEGATIVE (Neg); URINE COCAINE SCREEN NEGATIVE (Neg); URINE METHADONE SCREEN NEGATIVE (Neg); URINE OPIATE SCREEN NEGATIVE (Neg); URINE PHENCYCLIDINE SCREEN NEGATIVE (Neg)
--- NOTE | 2021-05-02 19:17 | NUR ---
UPON INITIAL ASSESSMENT, PT IS AOX4 GCS 15 IN NAD AND ON THE TIRE TECHNICIAN WITH AMIO DRIP GOING AT 33. PT MEAL PROVIDED BY EVS. PT STATES HE FEELS VERY ANXIOUS AND HE TAKES ATIVAN AT HOME, REQ TO [facility] FOR SOMETHING FOR HIS ANXIETY. HR REMAINS IN 120-130S WITH AMIO DRIP RUNNING.
[2021-05-02] MEDS ORDERED: LORazepam 2 mg/ml vial IM ONE (19:50)
[2021-05-02] MEDS: K and/or MAG REPLACEMENT MC SCH (20:00)
[2021-05-02 22:25] VITALS: BP 132/68
[2021-05-02] MEDS: LORazepam 2 mg/ml vial IV PRN (22:27)
[2021-05-02 22:39] VITALS: BP 121/77
[2021-05-02] MEDS: apixaban 5mg tablet PO SCH (22:42)
[2021-05-02] MEDS: carVEDilol 3.125mg tablet PO SCH (22:43)
[2021-05-02] MEDS: docusate sod 100mg capsule PO SCH (22:43)
[2021-05-03 00:40] VITALS: BP 118/64
[2021-05-03] MEDS: LORazepam 2 mg/ml vial IV PRN ×2 (00:46→01:56)
[2021-05-03 02:00] VITALS: BP 113/62
[2021-05-03] MEDS: amiodarone/D5 360MG/200ML BAG 200 ML IV SCH (03:49)
--- NOTE | 2021-05-03 03:52 | NUR ---
Patient arrived on the floor at 2034, alert and responsive, oriented x 4, but restless, and at times combative. Vitals were stable but for heart rate in the 120s. Patient`s Amiodarone drip was reduced at 10p from 33ml/hr to 17ml/hr, tolerated. Patient was still restless, getting out of bed, combative, and at one time scratching this RN on the hands. Security called at one time. MD made aware, and orders for Ativan 1mg IV q one hour PRN noted and carried out. At this time patient has been administered 3mg total at three different times. Patient still remained restless, pulling out all tele monitors and IV lines, and refusing to have them put back on. MD Crouch made aware, and was at bedside to assess patient. MD ordered telemonitor held until 7am, and also ordered bilateral soft restraints. Orders noted and carried out. Latest vitals 114/61; 104; 20; 97.9, and 96% on room air presently. Will continue to monitor.
--- NOTE | 2021-05-03 05:39 | NUR ---
Patient still restless, disembarked from the bilateral restraints, got up from the bed, and urinated on the floor, standing. He was also swearing and using foul language. Security was at bedside for the third time during this shift.
[2021-05-03 06:00] VITALS: BP 100/66
[2021-05-03] MEDS: apixaban 5mg tablet PO SCH (08:00)
[2021-05-03] MEDS ORDERED: aspirin 81mg, enteric-coated 1 TAB TABLET.DR PO SCH (08:00)
[2021-05-03] MEDS ORDERED: nicotine 21mg patch - 24 hr TD SCH (08:00)
[2021-05-03] MEDS: K and/or MAG REPLACEMENT MC SCH (08:00)
[2021-05-03] MEDS: carVEDilol 3.125mg tablet PO SCH (08:00)
[2021-05-03] MEDS: docusate sod 100mg capsule PO SCH (08:00)
--- NOTE | 2021-05-03 08:54 | NUR ---
Paged Dr. Fisher about pt refusing care PAGER ID: [phone] MESSAGE: [phone] Russ Brewer. Patient refuses AM lab draw, tele monitor, and all AM meds. He does have amiodarone gtt infusing. PCU Flavia
--- NOTE | 2021-05-03 10:00 | NUR ---
Patient left AMA. Belongings sent with patient. IV discontinued cannula intact. Telemetry discontinued. Escorted out by security.
== END 2021-05-03 09:58 | disposition left against medical advice (07) | DRG 201 ==
LOC: ER 13:15 → ED HOLD 15:54 → PCU 3S 20:25
PROVIDERS: ADMIT Family Medicine; ATTEND Family Medicine
DX: I48.91 Unspecified atrial fibrillation (principal); I21.A1 Myocardial infarction type 2; I42.7 Cardiomyopathy due to drug and external agent; I48.92 Unspecified atrial flutter; B19.20 Unspecified viral hepatitis C without hepatic coma; J44.9 Chronic obstructive pulmonary disease, unspecified; K21.9 Gastro-esophageal reflux disease without esophagitis; F17.210 Nicotine dependence, cigarettes, uncomplicated; N18.30 Chronic kidney disease, stage 3 unspecified; F41.9 Anxiety disorder, unspecified; D72.829 Elevated white blood cell count, unspecified; Z53.29 Procedure and treatment not carried out because of patient's decision for other reasons; Z82.49 Family history of ischemic heart disease and other diseases of the circulatory system; Z79.899 Other long term (current) drug therapy; Z79.82 Long term (current) use of aspirin; Z71.6 Tobacco abuse counseling
CPT/HCPCS: 36415; 71045; 80053; 80305; 83880; 84484; 85025; 93005; 94760; 96374; 96375; 99285; G0378; J2060; J3490